=== PATIENT | male | born 1975 | race Caucasian/White ===

== ENCOUNTER 2022-10-12 23:43 | Emergency (ER) | payer OTHER ==
[~2022-10-12] VITALS: Ht 177.8 cm; Wt 92.5 kg
[~2022-10-12 23:43] MED LIST: IBUP200
[2022-10-12 23:53] VITALS: BP 132/83
[2022-10-13] MEDS ORDERED: AMOCLA875 PO (00:07)
== END 2022-10-13 00:19 | disposition home or self-care (01) ==
LOC: ER 23:43
DX: K02.9 Dental caries, unspecified (principal); Z79.1 Long term (current) use of non-steroidal anti-inflammatories (NSAID)
CPT/HCPCS: 99282